=== PATIENT | female | born 1955 | race Caucasian/White ===

== ENCOUNTER → 2018-11-16 13:30 | Outpatient (CLI) | payer BC, SELFPAY ==
[2018-11-22 14:21] LABS: Occult Blood,Stool Negative (Negative)
== END ==
PROVIDERS: PCP Internal Medicine; Visit Provider Internal Medicine Gastroenterology
DX: D50.9 Iron deficiency anemia, unspecified (principal)
CPT/HCPCS: 82272; G0328

== ENCOUNTER → 2018-11-18 13:45 | Outpatient (CLI) | payer BC, SELFPAY ==
[2018-11-22 14:21] LABS: Occult Blood,Stool Negative (Negative)
== END ==
PROVIDERS: PCP Internal Medicine; Visit Provider Internal Medicine Gastroenterology
DX: D50.9 Iron deficiency anemia, unspecified (principal)
CPT/HCPCS: 82272; G0328

== ENCOUNTER 2018-11-22 10:37 | Outpatient (CLI) | payer BC, SELFPAY ==
[2018-11-22 11:10] VITALS: BP 135/75; PULSE 86; RESP 18; TEMP 36.6; O2SAT 98
[2018-11-22 11:45] VITALS: BP 131/79; PULSE 84; RESP 18; O2SAT 98
== END 2018-11-22 11:50 | disposition home or self-care (01) ==
LOC: INF 10:37
PROVIDERS: Visit Provider Internal Medicine Gastroenterology
DX: D50.9 Iron deficiency anemia, unspecified (principal)
CPT/HCPCS: 96365; J1439

== ENCOUNTER → 2018-11-22 13:39 | Outpatient (CLI) | payer BC, SELFPAY ==
[2018-11-22 14:21] LABS: Occult Blood,Stool Negative (Negative)
== END ==
PROVIDERS: PCP Internal Medicine; Visit Provider Internal Medicine Gastroenterology
DX: D50.9 Iron deficiency anemia, unspecified (principal)
CPT/HCPCS: 82272; G0328

== ENCOUNTER 2018-11-29 09:00 | Outpatient (CLI) | payer BC, SELFPAY ==
[2018-11-29 09:15] VITALS: BP 140/91; PULSE 79; RESP 18; TEMP 36.6; O2SAT 99
[2018-11-29 09:53] VITALS: BP 137/80; PULSE 82; RESP 18; TEMP 36.6; O2SAT 99
[2018-11-29 10:28] VITALS: BP 135/80; PULSE 76; RESP 18; TEMP 36.6; O2SAT 99
== END 2018-11-29 10:28 | disposition home or self-care (01) ==
LOC: INF 09:19
PROVIDERS: Visit Provider Internal Medicine Gastroenterology
DX: D50.9 Iron deficiency anemia, unspecified (principal)
CPT/HCPCS: 96365; J1439

== ENCOUNTER → 2020-04-13 12:23 | Outpatient (CLI) | payer BC, SELFPAY ==
[2020-04-13 14:55] LABS: Coronavirus 19 IgG Antibody Negative (Negative); Coronavirus 19 IgM Antibody Negative (Negative)
== END ==
PROVIDERS: Visit Provider Internal Medicine Gastroenterology
DX: Z01.818 Encounter for other preprocedural examination (principal); Z03.818 Encounter for observation for suspected exposure to other biological agents ruled out; K64.9 Unspecified hemorrhoids; K92.1 Melena
CPT/HCPCS: 36415; 86328

== ENCOUNTER 2020-04-16 10:59 | Day surgery (SDC) | payer BC, SELFPAY ==
[2020-04-11 12:13] VITALS: BMI 33.8
[2020-04-16] VITALS (8 sets, daily range): BP systolic 114–163; BP diastolic 56–84; PULSE 63–82; RESP 16–20; TEMP 36.2–36.5; O2SAT 96–99
--- NOTE | 2020-04-16 13:16 | HMH.ANESCL ---
[facility] Anesthesia Checklist - Patient Identification Patient Identification: Arm Band - Structural Data Admitted From: Home Planned Operative Procedure/s: flexible sigmoidoscopy Consent for Planned Operative Procedure(s) Verified: Yes Verified Documents: Surgical Consent, History and Physical - NPO Status Verified Time NPO: 00:00 - Additional verifications Anesthesia Reactions: No Hx Blood Transfusions: No Blood Transfusion Reaction: No - Airway Assessment C-Spine Mobility Assessed: Yes (mp2) TMJ Mobility Assessed: Yes Dentition: Good Dentition - Neurological Assessment Level of Consciousness: Awake, Alert - Anesthesia Plan Anesthesia Risk discussed: Yes Anesthesia Plan: Verified ASA Class: III Anesthesia Type: MAC [facility] History I have reviewed the patient's past medical history: Yes Medical History: Reports:: Hyperlipidemia, Lung Disease (asthma, copd, ravi) Denies:: Cancer, Diabetes Mellitus Type 1, Diabetes Mellitus Type 2, Internal Pacemaker, MRSA, Seizures *Have you ever received a pneumonia vaccine?: Yes *Have you received a flu vaccine this season?: Yes Other Medical History: Reports: Hypothyroidism. Denies: Blood Transfusion Reaction Anesthesia experience/problems:: nac Laterality Cases: Left: Lumpectomy, Right: Carpal Tunnel Release Other Surgeries: No: Pacemaker Amputation: No Fractures: No - *Social History Last grade of school completed: Advanced degree Smoking Status: Never smoker Alcohol Intake: never Substance Use Type: denies use *Occupational Status:: employed Housing: house Household Members: spouse *Travel in the last 8 weeks: None Family Hx:: Hypertension
--- NOTE | 2020-04-16 13:22 | HMH.PROC ---
[facility] Procedure Note Procedure Note:: Flexible Sigmoidoscopy Procedure Report: Sigmoidoscopy with hemorrhoid band ligation Endoscopist: Ben Arguelles II, MD Referring physician: Johnathon Epps M.D. Date of Procedure: April 16, 2020 Equipment: Olympus 180 variable stiffness pediatric colonoscope Sedation: MAC sedation Indication: Mrs. Stevens is a 64-year-old female with chronic constipation/IBS constipation. She has had improvement with dietary measures, pelvic floor physical therapy, Konsyl and Trulance. She also has done a low FODMAP diet. She did have panendoscopy with me in November 2018. She has had frequent bright red rectal bleeding from hemorrhoids. 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 She has been followed by the dietitian. She does have hemorrhoidal prolapse and frequent hemorrhoidal bleeding. This is felt to be causing her iron deficiency anemia. Procedure: Prior to the procedure, a history and physical exam was performed, and patient's medications and allergies were reviewed. The risks, benefits and alternatives of the sedation and procedure were discussed with the patient. All questions were answered and informed consent was obtained. The patient was brought to the procedure room. Patient identification and proposed procedure were verified by the physician and the nurse. The patient was placed in a left lateral decubitus position and the scope was passed under direct vision. Throughout the procedure, the patient's blood pressure, pulse, and oxygen saturations were monitored continuously. The colonoscopy was accomplished without difficulty. The patient tolerated the procedure well. Findings: On digital rectal examination there were large prolapsed hemorrhoids. The scope was then inserted through the anal canal into the rectum and advanced to 70 cm from the anal verge. There were scattered diverticuli throughout the distal descending and sigmoid colon. Upon retroflexion within the rectum there were grade 3 internal hemorrhoids with prolapse. These hemorrhoids were banded using 4 bands on 3 columns of hemorrhoids with excellent ligation effect. Impression: 1. Grade 3 prolapsed internal hemorrhoids status post band ligation x4 2. Left-sided diverticulosis Plan: I will discussed the findings with the patient and family. I would continue bulk fiber supplementation (Konsyl) on a long-term daily maintenance basis.
== END 2020-04-16 14:35 | disposition home or self-care (01) ==
LOC: OUTP 11:02
PROVIDERS: PCP Internal Medicine; Visit Provider Internal Medicine Gastroenterology
PROC: 0DJD8ZZ Inspection of Lower Intestinal Tract, Via Natural or Artificial Opening Endoscopic (ICD-10-PCS; CPT 45330; principal; 2020-04-16 12:30)
DX: K58.1 Irritable bowel syndrome with constipation (principal); K64.2 Third degree hemorrhoids; K57.30 Diverticulosis of large intestine without perforation or abscess without bleeding; E78.5 Hyperlipidemia, unspecified; J44.9 Chronic obstructive pulmonary disease, unspecified; G47.33 Obstructive sleep apnea (adult) (pediatric); E03.9 Hypothyroidism, unspecified; Z87.39 Personal history of other diseases of the musculoskeletal system and connective tissue; Z88.0 Allergy status to penicillin; Z79.899 Other long term (current) drug therapy
CPT/HCPCS: 45350